=== PATIENT | female | born 1950 | race Caucasian/White ===

== ENCOUNTER 2021-08-25 12:10 | Outpatient (CLI) | payer MEDICARE, SELFPAY ==
[2021-08-25 12:33] VITALS: BP 121/68; PULSE 90; RESP 16; TEMP 36.4; O2SAT 93; BMI 25.6
[2021-08-25] MEDS: 0.9% Saline Lock 10 ML Syringe IV (12:39)
[2021-08-25 13:10] VITALS: BP 122/72; PULSE 87; RESP 16; TEMP 37.2; O2SAT 97
[2021-08-25 14:04] VITALS: BP 130/82; PULSE 90; RESP 16; TEMP 37; O2SAT 97
== END 2021-08-25 14:10 | disposition home or self-care (01) ==
LOC: MS3OUT 12:10 → MS3 12:12
PROVIDERS: Referring Provider Nurse Practitioner Adult Health; Visit Provider Nurse Practitioner Adult Health
DX: Z23 Encounter for immunization (principal); U07.1 COVID-19
CPT/HCPCS: J7050; M0245; Q0245; A4216